=== PATIENT | female | born 1980 | race Caucasian/White ===

== ENCOUNTER 2020-03-11 14:47 | Outpatient (CLI) | payer BC ==
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
== END 2020-03-11 14:48 | disposition home or self-care (01) ==
LOC: SCSRAD 14:47
PROVIDERS: ATTEND Internal Medicine
DX: M54.2 Cervicalgia (principal)
CPT/HCPCS: 72040